=== PATIENT | male | born 1975 | race Caucasian/White ===

== ENCOUNTER 2017-02-06 13:28 | Emergency (ER) | payer OTHER ==
[2017-02-06 13:33] VITALS: TEMP 98.4
[2017-02-06] MEDS ORDERED: NS 1,000 ML IV ONE (13:43)
--- NOTE | 2017-02-06 13:43 | CPEKG ---
Heart Rate: 67 RR Interval: 896 P-R Interval: 124 QRSD Interval: 94 QT Interval: 392 QTC Interval: 414 P [place]: -2 QRS [place]: 77 T Wave [place]: 47 EKG Severity - NORMAL ECG - EKG Impression: SINUS RHYTHM EKG Impression: Agree with above Electronically Signed By: David Rooney 07-Feb-2017 17:50:31
[2017-02-06 13:48] LABS: % IMMATURE GRANULYOCYTES 0.4 % (0.0-1.1); ABSOLUTE IMMATURE GRANULOCYTES 0.03 10^3/uL (0.00-0.10); ADD DIFF? NO; ADD MORPH? NO; ADD SCAN? NO; ATYPICAL LYMPHOCYTE FLAG 10 (0-99); FRAGMENT RBC FLAG 0 (0-99); HEMATOCRIT 46.3 % (40.0-51.0); HEMOGLOBIN 16.4 g/dL (13.7-17.5); LEFT SHIFT FLG 0 (0-99); LIPEMIA HEMOLYSIS FLAG 90 (0-99); MEAN CELL HEMOGLOBIN CONCENTR. 35.4 g/dL (32.4-36.7); MEAN CELL VOLUME 93.2 fL (81.5-99.8); MEAN PLATELET VOLUME 10.5 fL (8.7-11.7); PLATELET CLUMPS FLAG 0 (0-99); PLATELET COUNT 326 10^3/uL (150-400); RED BLOOD CELL COUNT 4.97 10^6/uL (4.40-6.38)
[2017-02-06] MEDS ORDERED: PANTOPRAZOLE SODIUM 40 MG VIAL IVP ONE (13:50)
--- NOTE | 2017-02-06 13:50 | EDPHY ---
General Time Seen by Provider: 02/06/17 13:43 Narrative: CHIEF COMPLAINT: Abdominal pain HISTORY OF PRESENT ILLNESS: 2 week history of epigastric and left upper quadrant abdominal pain. It is [id number] at times, and other times moderate to severe. Worse after eating with intake of alcohol. No vomiting but some nausea. No diaphoresis. No chest pain or shortness of breath. No constipation or diarrhea. No trauma or injury. Patient does use marijuana frequently and heavily. He also admits to 6 beers per night until the past couple weeks, down to 1 beer per night. No fevers or chills. No other associated complaints or modifying factors. PREVIOUS ABDOMINAL SURGERIES/DIAGNOSES: None NPO: Breakfast today REVIEW OF SYSTEMS: Ten systems reviewed and are negative unless otherwise noted in the HPI EXAMINATION: General Appearance: Alert, no distress, strong odor of marijuana Head: normocephalic, atraumatic Eyes: Pupils equal and round, no conjunctival pallor or injection ENT, Mouth: Mucous membranes moist. Uvula midline. No erythema edema. Neck: Normal inspection, supple, non-tender. No meningismus. Respiratory: Lungs are clear to auscultation. No wheezing, rhonchi or crackles. Cardiovascular: Regular rate and rhythm. No murmur. Pulses intact distally. Gastrointestinal: Abdomen is soft. Mild tenderness in the epigastrium with her quadrant. No rigidity. No tympany. No CVA tenderness. Nonacute abdomen. Neurological: A&O, nonfocal, normal gait. Strength is 5/5 in all limbs for Skin: Warm and dry, no rash Extremities: Nontender, no pedal edema Psychiatric: Mood and affect normal DIFFERENTIAL DIAGNOSES: Including but not limited to gastritis, pancreatitis, enteritis, colitis, cholecystitis, cholelithiasis MDM: 1:50 p.m. Epigastric and left upper quadrant abdominal pain for 2 weeks. Symptoms are worse with intake by mouth but improved at rest. Also worse with intake of alcohol. He has decreased his 6 beer per night down to less than 1 beer per evening. His abdominal exam is benign. Laboratory studies are pain at this time 2:20 p.m. Likely gastritis. Laboratory studies are well within normal limits. He is feeling better with GI cocktail and Protonix, and IV fluid. His abdominal exam is completely benign. I do not feel he warrants a CT scan of the abdomen pelvis at this time. I will discharge him home with Prilosec and Pepcid. He is to follow up with primary care physician. He is to abstain from alcohol and marijuana use. He already has an appointment with a transit manager next week. He is to return to ER should his symptoms worsen, he started vomiting or have any fever chills. He is comfortable with this plan and discharged home stable condition. ED Precautions: Worsening pain. Fever. Bloody stools. Bloody emesis. Constipation or diarrhea. SUPERVISION: This patient was independently evaluated without direct examination by the attending physician. Case was discussed with attending physician. - History Smoking Status: Never smoked - Objective Vital Signs: Initial Vital Signs Temperature (C) 98.4 F 02/06/17 13:29 Heart Rate 72 02/06/17 13:29 Respiratory Rate 18 02/06/17 13:29 Blood Pressure 136/92 H 02/06/17 13:29 O2 Sat (%) 97 02/06/17 13:29 O2 Delivery Mode Room Air Allergies/Adverse Reactions: No Known Allergies Allergy (Unverified 02/06/17 13:33) Home Medications: Medication Instructions Recorded Famotidine [Pepcid AC] 20 mg PO Q12 #20 tablet 02/06/17 Omeprazole Magnesium [Prilosec Otc] 20 mg PO DAILY #30 tablet. 02/06/17 Laboratory Results: Laboratory Results 02/06/17 13:40 02/06/17 13:40 02/06/17 02/06/17 02/06/17 13:40 13:40 13:40 WBC 7.00 10^3/uL 10^3/uL (3.80-9.50) RBC 4.97 10^6/uL 10^6/uL (4.40-6.38) Hgb 16.4 g/dL g/dL (13.7-17.5) Hct 46.3 % % (40.0-51.0) MCV 93.2 fL fL (81.5-99.8) MCH 33.0 pg pg (27.9-34.1) MCHC 35.4 g/dL g/dL (32.4-36.7) RDW 12.0 % % (11.5-15.2) Plt Count 326 10^3/uL 10^3/uL (150-400) MPV 10.5 fL fL (8.7-11.7) Neut % (Auto) 68.7 % % (39.3-74.2) Lymph % (Auto) 19.0 % % (15.0-45.0) [place] % (Auto) 9.6 % % (4.5-13.0) Eos % (Auto) 1.4 % % (0.6-7.6) Baso % (Auto) 0.9 % % (0.3-1.7) Nucleat RBC Rel Count 0.0 % % (0.0-0.2) Absolute Neuts (auto) 4.81 10^3/uL 10^3/uL (1.70-6.50) Absolute Lymphs (auto) 1.33 10^3/uL 10^3/uL (1.00-3.00) Absolute Monos (auto) 0.67 10^3/uL 10^3/uL (0.30-0.80) Absolute Eos (auto) 0.10 10^3/uL 10^3/uL (0.03-0.40) Absolute Basos (auto) 0.06 10^3/uL 10^3/uL (0.02-0.10) Absolute Nucleated RBC 0.00 10^3/uL 10^3/uL (0-0.01) Immature Gran % 0.4 % % (0.0-1.1) Immature Gran # 0.03 10^3/uL 10^3/uL (0.00-0.10) PT 12.2 SEC SEC (12.0-15.0) INR 0.91 (0.83-1.16) APTT 24.1 SEC SEC (23.0-38.0) Sodium 143 mEq/L mEq/L (134-144) Potassium 3.8 mEq/L mEq/L (3.5-5.2) Chloride 105 mEq/L mEq/L (97-110) Carbon Dioxide 26 mEq/l mEq/l (22-31) Anion Gap 12 mEq/L mEq/L (8-16) BUN 15 mg/dL mg/dL (7-23) Creatinine 0.9 mg/dL mg/dL (0.7-1.3) Estimated GFR > 60 Glucose 101 mg/dL H mg/dL (70-100) Calcium 10.4 mg/dL mg/dL (8.5-10.4) Total Bilirubin 0.9 mg/dL mg/dL (0.1-1.4) Conjugated Bilirubin 0.4 mg/dL mg/dL (0.0-0.5) Unconjugated Bilirubin 0.5 mg/dL mg/dL (0.0-1.1) AST 23 IU/L IU/L (17-59) ALT 31 IU/L IU/L (21-72) Alkaline Phosphatase 51 IU/L IU/L (38-126) Total Protein 7.9 g/dL g/dL (6.3-8.2) Albumin 5.0 g/dL g/dL (3.5-5.0) Lipase 75.0 IU/L IU/L (23-300) Departure - Departure Disposition: Home, Routine, Self-Care Clinical Impression: Epigastric abdominal pain Gastritis Qualifiers: Gastritis type: unspecified gastritis Chronicity: acute Gastritis bleeding: without bleeding Qualified Code(s): K29.00 - Acute gastritis without bleeding Condition: Good Instructions: Gastritis (ED), At-Risk Alcohol Use (ED) Additional Instructions: Abstain from alcohol and marijuana. Prilosec and Pepcid as prescribed. Follow up with primary care physician for further care. Keep her appointment with the transit manager next week. Return to ER for worsening symptoms, vomiting or fever Referrals: Matias Pimentel MD [Primary Care Provider] - As per Instructions Prescriptions: Famotidine [Pepcid AC] 20 mg PO Q12 #20 tablet Omeprazole Magnesium [Prilosec Otc] 20 mg PO DAILY #30 tablet.
[2017-02-06] MEDS ORDERED: MAG HYDROX/AL HYDROX/SIMETH 30 ML UDCUP PO ONE (13:51)
[2017-02-06] MEDS ORDERED: LIDOCAINE 2% VISCOUS 15 ML UDCUP PO ONE (13:51)
[2017-02-06] MEDS ORDERED: HYOSCYAMINE SULFATE 0.125 MG TAB PO ONE (13:51)
[2017-02-06 13:59] LABS: INR 0.91 (0.83-1.16); PROTIME(PATIENT) 12.2 SEC (12.0-15.0)
[2017-02-06 14:00] LABS: APTT 24.1 SEC (23.0-38.0)
[2017-02-06 14:05] LABS: ALANINE AMINOTRANSFERASE 31 IU/L (21-72); ALKALINE PHOSPHATASE 51 IU/L (38-126); ANION GAP 12 mEq/L (8-16); ASPARTATE AMINOTRANSFERASE 23 IU/L (17-59); BILIRUBIN,TOTAL 0.9 mg/dL (0.1-1.4); BILIRUBIN-CONJUGATED 0.4 mg/dL (0.0-0.5); BILIRUBIN-UNCONJUGATED 0.5 mg/dL (0.0-1.1); CALCIUM 10.4 mg/dL (8.5-10.4); CARBON DIOXIDE 26 mEq/l (22-31); CHLORIDE 105 mEq/L (97-110); CREATININE 0.9 mg/dL (0.7-1.3); GLOMERULAR FILTRATION RATE > 60; GLUCOSE 101 mg/dL (70-100); POTASSIUM 3.8 mEq/L (3.5-5.2); SODIUM 143 mEq/L (134-144); TOTAL PROTEIN 7.9 g/dL (6.3-8.2)
[2017-02-06] MEDS ORDERED: FLUORESCEIN SODIUM 1 MG STRIP OP ONE (14:37)
[2017-02-06 15:09] VITALS: BP 130/87; PULSE 70; RESP 14; O2SAT 94
== END 2017-02-06 15:07 | disposition home or self-care (01) ==
DX: K29.00 Acute gastritis without bleeding (principal)
CPT/HCPCS: 96374

== ENCOUNTER 2017-03-06 23:37 | Emergency (ER) | payer BC, OTHER ==
[2017-03-06 23:45] VITALS: TEMP 97.7
--- NOTE | 2017-03-06 23:59 | CPEKG ---
Heart Rate: 66 RR Interval: 909 P-R Interval: 152 QRSD Interval: 104 QT Interval: 396 QTC Interval: 415 P [place]ump: 20 QRS [place]ump: 70 T Wave [place]: 41 EKG Severity - NORMAL ECG - EKG Impression: SINUS RHYTHM Electronically Signed By: Avila Yepez 07-Mar-2017 02:47:43
[2017-03-07 00:18] LABS: % IMMATURE GRANULYOCYTES 0.3 % (0.0-1.1); ABSOLUTE IMMATURE GRANULOCYTES 0.02 10^3/uL (0.00-0.10); ADD DIFF? NO; ADD MORPH? NO; ADD SCAN? NO; ATYPICAL LYMPHOCYTE FLAG 40 (0-99); FRAGMENT RBC FLAG 0 (0-99); HEMOGLOBIN 13.5 g/dL (13.7-17.5); LEFT SHIFT FLG 0 (0-99); LIPEMIA HEMOLYSIS FLAG 90 (0-99); MEAN CELL HEMOGLOBIN 32.4 pg (27.9-34.1); MEAN CELL HEMOGLOBIN CONCENTR. 35.5 g/dL (32.4-36.7); MEAN CELL VOLUME 91.1 fL (81.5-99.8); MEAN PLATELET VOLUME 10.7 fL (8.7-11.7); PLATELET CLUMPS FLAG 20 (0-99); PLATELET COUNT 303 10^3/uL (150-400); RED BLOOD CELL COUNT 4.17 10^6/uL (4.40-6.38); RED CELL DISTRIBUTION WIDTH 11.3 % (11.5-15.2)
[2017-03-07] MEDS ORDERED: SKIN ADHESIVE (DERMABOND) 1 EACH TP ONE (00:41)
[2017-03-07 01:11] LABS: ANION GAP 11 mEq/L (8-16); CALCIUM 9.8 mg/dL (8.5-10.4); CARBON DIOXIDE 24 mEq/l (22-31); CHLORIDE 104 mEq/L (97-110); CREATININE 0.9 mg/dL (0.7-1.3); GLOMERULAR FILTRATION RATE > 60; GLUCOSE 150 mg/dL (70-100); POTASSIUM 3.7 mEq/L (3.5-5.2); SODIUM 139 mEq/L (134-144)
--- NOTE | 2017-03-07 01:20 | EDPHY ---
H & P Stated Complaint: syncope Time Seen by Provider: 03/07/17 00:19 HPI/ROS: Chief Complaint: Syncope, head laceration HPI: 42-year-old male had a syncopal event while sitting on the toilet having a bowel movement home. Patient fell and struck his head on the toilet. This was witnessed by his . He had a brief loss of consciousness of about 10 seconds. No headache. No neck pain. Patient does state that he did [place]. No chest pain shortness of breath or palpitations. Does not have a history of passing out in the past. No family history of coronary artery disease or sudden cardiac or arrhythmia. No leg pain or swelling. He is currently being worked up for abdominal pain post gastroenteritis. No new injuries in his symptoms. ROS: 10 point Review of Systems is negative except as noted in the HPI. PMH: None Medications: None Allergies: No known drug allergies Social History: No smoking, occasional alcohol, daily marijuana Family History: non-contributory Physical Exam: Gen: Awake, Alert, No Distress HEENT: Is a 2 cm laceration over his right eyebrow. There is no edema or ecchymosis. No bony tenderness or crepitus or step-offs. Nose: no rhinorrhea Eyes: PERRLA, EOMI Mouth: Moist mucosa Neck: Supple, no JVD, nontender full range of motion of pain Chest: nontender, lungs clear to auscultation Heart: S1, S2 normal, no murmur Abd: Soft, non-tender, no guarding Back: no CVA tenderness, no midline tenderness Ext: no edema, non-tender Skin: no rash Neuro: CN II-XII intact, Sensation grossly intact, Strength 5/5 in bilateral upper and lower extremities - Personal History Current Tetanus/Diphtheria Vaccine: Yes Current Tetanus Diphtheria and Acellular Pertussis (TDAP): Yes - Medical/Surgical History Hx Asthma: No Hx Chronic Respiratory Disease: No Hx Diabetes: No Hx Cardiac Disease: No Hx Renal Disease: No Hx Cirrhosis: No Hx Alcoholism: No Hx HIV/AIDS: No Hx Splenectomy or Spleen Trauma: No Other PMH: denies - Social History Smoking Status: Never smoked Constitutional: Initial Vital Signs Temperature (C) 36.5 C 03/06/17 23:42 Heart Rate 69 03/06/17 23:42 Respiratory Rate 16 03/06/17 23:42 Blood Pressure 128/76 H 03/06/17 23:42 O2 Sat (%) 97 03/06/17 23:42 O2 Delivery Mode Room Air O2 (L/minute) 2 Allergies/Adverse Reactions: No Known Allergies Allergy (Unverified 03/06/17 23:41) Home Medications: Medication Instructions Recorded Famotidine [Pepcid AC] 20 mg PO Q12 #20 tablet 02/06/17 Omeprazole Magnesium [Prilosec Otc] 20 mg PO DAILY #30 tablet. 02/06/17 Medical Decision Making - Diagnostics EKG Interpretation: ECG time 23:56 sinus rhythm with a rate of 66, normal axis, normal intervals, no acute ST or T-wave changes. Impression: Normal ECG Procedures: Procedure: Laceration repair with skin glue. The 2 cm laceration on the right eyebrow. The wound was cleaned and explored to its base with a gloved finger. There were no deep structures involved. The wound was repaired with tissue adhesive. The procedure was performed by myself. ED Course/Re-evaluation: 42-year-old male with a syncopal episode which is likely vasovagal in nature as it occurred when he was on the toilet. Did not have any chest pain or palpitations. Does sustained a laceration but has no other findings suggestive of significant head injury. Lacerations been glued. He did have a long plane flight today but a D-dimer here is negative. Troponin is normal. ECG is normal. No other risk factors for arrhythmia or coronary disease. Will discharge with follow up with primary care physician, return for any concerns. - Data Points Laboratory Results: Laboratory Results 03/07/17 00:00 03/07/17 00:00 03/07/17 03/07/17 03/07/17 00:00 00:00 00:00 WBC 7.99 10^3/uL 10^3/uL (3.80-9.50) RBC 4.17 10^6/uL L 10^6/uL (4.40-6.38) Hgb 13.5 g/dL L g/dL (13.7-17.5) Hct 38.0 % L % (40.0-51.0) MCV 91.1 fL fL (81.5-99.8) MCH 32.4 pg pg (27.9-34.1) MCHC 35.5 g/dL g/dL (32.4-36.7) RDW 11.3 % L % (11.5-15.2) Plt Count 303 10^3/uL 10^3/uL (150-400) MPV 10.7 fL fL (8.7-11.7) Neut % (Auto) 46.7 % % (39.3-74.2) Lymph % (Auto) 35.2 % % (15.0-45.0) [place] % (Auto) 8.9 % % (4.5-13.0) Eos % (Auto) 7.3 % % (0.6-7.6) Baso % (Auto) 1.6 % % (0.3-1.7) Nucleat RBC Rel Count 0.0 % % (0.0-0.2) Absolute Neuts (auto) 3.74 10^3/uL 10^3/uL (1.70-6.50) Absolute Lymphs (auto) 2.81 10^3/uL 10^3/uL (1.00-3.00) Absolute Monos (auto) 0.71 10^3/uL 10^3/uL (0.30-0.80) Absolute Eos (auto) 0.58 10^3/uL H 10^3/uL (0.03-0.40) Absolute Basos (auto) 0.13 10^3/uL H 10^3/uL (0.02-0.10) Absolute Nucleated RBC 0.00 10^3/uL 10^3/uL (0-0.01) Immature Gran % 0.3 % % (0.0-1.1) Immature Gran # 0.02 10^3/uL 10^3/uL (0.00-0.10) D-Dimer < 0.27 ug/mLFEU ug/mLFEU (0.00-0.50) Sodium 139 mEq/L mEq/L (134-144) Potassium 3.7 mEq/L mEq/L (3.5-5.2) Chloride 104 mEq/L mEq/L (97-110) Carbon Dioxide 24 mEq/l mEq/l (22-31) Anion Gap 11 mEq/L mEq/L (8-16) BUN 13 mg/dL mg/dL (7-23) Creatinine 0.9 mg/dL mg/dL (0.7-1.3) Estimated GFR > 60 Glucose 150 mg/dL H mg/dL (70-100) Calcium 9.8 mg/dL mg/dL (8.5-10.4) Troponin I Pending Departure - Departure Disposition: Home, Routine, Self-Care Clinical Impression: Vasovagal syncope, Facial laceration Condition: Good Instructions: Syncope (ED), Facial Laceration (ED), Skin Adhesive Care (ED) Additional Instructions: Patient drink plenty of fluids. Follow up with primary care physician in 2-3 days for re-evaluation. Return emergency department for palpitations, fast heart rate, chest pain, shortness of breath, lightheadedness, fainting, or any other concerns. Referrals: NONE *PRIMARY CARE P,. [Primary Care Provider] - As per Instructions
[2017-03-07 01:23] LABS: TROPONIN I < 0.012 ng/mL (0-0.034)
[2017-03-07 01:28] VITALS: BP 120/77; PULSE 66; RESP 14; O2SAT 96
== END 2017-03-07 01:33 | disposition home or self-care (01) ==
PROC: 08QNXZZ Repair Right Upper Eyelid, External Approach (ICD-10-PCS; principal; 2017-03-06)
DX: S01.111A Laceration without foreign body of right eyelid and periocular area, initial encounter (principal); R55 Syncope and collapse; W01.198A Fall on same level from slipping, tripping and stumbling with subsequent striking against other object, initial encounter; Y92.009 Unspecified place in unspecified non-institutional (private) residence as the place of occurrence of the external cause; Y93.89 Activity, other specified